=== PATIENT | female | born 1980 | race Caucasian/White ===

== ENCOUNTER → 2018-01-21 | Outpatient (CLI) | payer BC, OTHER ==
[~2018-01-21] MED LIST: ADDERALL 10 MG10 MG PO; NOHOMEMEDICATIONS; NORCO 5-325 TA1 EACH PO; PREDNISONE 20 M20 MG PO
== END ==
LOC: RAD 14:49
DX: M54.42 Lumbago with sciatica, left side (principal)

== ENCOUNTER → 2019-07-03 | Outpatient (CLI) | payer OTHER | LOC: RAD 14:40 | DX: R05 Cough (principal) ==